=== PATIENT | female | born 1980 ===

== ENCOUNTER 2016-11-12 09:40 | Emergency (ER) | payer SELFPAY ==
[2016-11-12 09:48] VITALS: BP 118/76; PULSE 79; RESP 19; TEMP 98.1; O2SAT 99
--- NOTE | 2016-11-12 11:28 | ED PDOC ---
HPI: Female Pain Time Seen by Provider: 11/12/16 10:46 Chief Complaint (Nursing): Female Genitourinary Chief Complaint (Provider): vaginal pressure History Per: Patient History/Exam Limitations: no limitations Associated Symptoms: denies: Fever, Chills, Nausea, Vomiting, Diarrhea, Loss Of Appetite, Back Pain, Constipation, Urinary Symptoms Additional Complaint(s): 36yo F 13 weeks gestation with c/o lower abd pain/pressure x 3 days intermittent worse 9/10 on pain scale without vaginal bleeding, fever, chills, or back pain. Abnormal Vaginal Bleeding: No Past Medical History Reviewed: Historical Data, Nursing Documentation, Vital Signs Vital Signs: Last Vital Signs Temp 98.1 F 11/12/16 09:45 Pulse 79 11/12/16 09:45 Resp 19 11/12/16 09:45 BP 118/76 11/12/16 09:45 Pulse Ox 99 11/12/16 09:45 - Medical History PMH: No Chronic Diseases - Family History Family History: States: No Known Family Hx - Allergies Allergies/Adverse Reactions: Allergies Allergy/AdvReac Type Severity Reaction Status Date / Time No Known Allergies Allergy Verified 11/12/16 10:00 Review of Systems ROS Statement: Except As Marked, All Systems Reviewed And Found Negative Constitutional: Negative for: Fever Gastrointestinal: Positive for: Abdominal Pain Physical Exam - Reviewed Nursing Documentation Reviewed: Yes Vital Signs Reviewed: Yes - Physical Exam Appears: Positive for: Well, Non-toxic, No Acute Distress Head Exam: Positive for: ATRAUMATIC, NORMAL INSPECTION, NORMOCEPHALIC Skin: Positive for: Normal Color, Warm, DRY Cardiovascular/Chest: Positive for: Regular Rate, Rhythm Respiratory: Positive for: CNT, Normal Breath Sounds Gastrointestinal/Abdominal: Positive for: Normal Exam, Bowel Sounds, Soft Back: Positive for: Normal Inspection. Negative for: L CVA Tenderness, R CVA Tenderness Extremity: Positive for: Normal ROM Neurologic/Psych: Positive for: Alert, Oriented - ECG O2 Sat by Pulse Oximetry: 99 - Progress ED Course And Treament: threatened vs round ligament pain- pt very concerned about feuts well being insisting on US. pt is clinic pt. will get US and labs. Medical Decision Making Medical Decision Making: US: 19 weeks live IUP dx: round ligament pain advised to use warm compress f.u with pmd Disposition - Clinical Impression Clinical Impression: Round ligament pain - Patient ED Disposition Is Patient to be Admitted: No Counseled Patient/Family Regarding: Studies Performed, Diagnosis, Need For Followup - Disposition Disposition: Routine/Home Disposition Time: 12:56 Condition: STABLE Instructions: (ED) Print Language: SLOVAK
[2016-11-12 12:21] LABS: RBC URINE 2 /hpf (0-3); URINE BACTERIA OCC (<OCC); URINE BILIRUBIN NEGATIVE (NEGATIVE); URINE BLOOD NEGATIVE (NEGATIVE); URINE COLOR YELLOW (YELLOW); URINE GLUCOSE (UA) 50 mg/dL (Normal); URINE KETONE TRACE mg/dL (NEGATIVE); URINE LEUKOCYTE ESTERASE TRACE Leu/uL (Negative); URINE PROTEIN NEGATIVE (NEGATIVE); URINE UROBILINOGEN 0.2-1.0 mg/dL (0.2-1.0); WBC URINE 3 /hpf (0-5)
--- NOTE | 2016-11-12 12:54 | US ---
PROCEDURE: OB Pelvic Ultrasound HISTORY: heavy pressure/pain COMPARISON: None available. FINDINGS: UTERUS: Gestational sac: Single intrauterine fetus in variable presentation. BPD 4.2 cm corresponding to 19 weeks and 0 days HC 15.9 cm corresponding to 18 weeks and 6 days AC 13.6 cm corresponding to 19 weeks and 1 day FL 2.9 cm corresponding to 19 weeks and 0 days Placenta is anterior. Heart rate: 141 bpm. age (Ultrasound estimated): 19 weeks and 0 days Allison-gestational hemorrhage: None. Date of delivery (Ultrasound estimated) : 04/08/2017 CERVIX: Long and closed. No cervical abnormality seen. RIGHT OVARY: Not visualized. LEFT OVARY: Not visualized. FREE FLUID: None. OTHER FINDINGS: None. IMPRESSION: Single live intrauterine fetus in variable presentation. The mean ultrasound gestational age is 19 weeks and 0 days. There is a discrepancy with the clinical dates by approximately 4 weeks. Clinical follow-up is advised. Follow-up anatomic survey is recommended.
[2016-11-12 13:27] LABS: BASO % 0.2 % (0.0-2.0); EOS # 0.1 K/uL (0.0-0.7); EOS % 0.7 % (0.0-4.0); HEMATOCRIT 36.7 % (34.0-47.0); LYMPH # 2.5 K/uL (1.0-4.3); LYMPH % 21.7 % (20.0-40.0); MEAN CELL VOLUME 86.4 fl (81.0-99.0); MEAN CORPUSCULAR HEMOGLOBIN 27.8 pg (27.0-31.0); MEAN CORPUSCULAR HGB CONC 32.1 g/dL (33.0-37.0); MEAN PLATELET VOLUME 8.8 fl (7.2-11.7); MONO % 9.1 % (0.0-10.0); NEUT # 7.8 K/uL (1.8-7.0); NEUT % 68.3 % (50.0-75.0); NRBC % 0.1 % (0.0-0.0); RED CELL DISTRIBUTION WIDTH 14.1 % (11.5-14.5); WHITE BLOOD COUNT 11.4 K/uL (4.8-10.8)
[2016-11-12 13:40] LABS: CHLORIDE 102 mmol/L (98-107)
[2016-11-12 13:41] LABS: POTASSIUM 3.8 MMOL/L (3.6-5.0); SODIUM 138 mmol/l (132-148)
[2016-11-12 13:43] LABS: ALKALINE PHOSPHATASE 59 U/L (38-126); AST/SGOT 30 U/L (14-36); BILIRUBIN,TOTAL 0.3 mg/dl (0.2-1.3); BLOOD UREA NITROGEN 8 mg/dl (7-17); CARBON DIOXIDE 24 mmol/L (22-30); GFR AFRICAN-AMERICAN > 60; TOTAL PROTEIN 7.3 G/DL (6.3-8.2)
[2016-11-12 13:44] LABS: ALT/SGPT 25 U/L (9-52); CALCIUM 9.3 mg/dL (8.4-10.2); GLUCOSE,RANDOM 74 mg/dL (65-105)
== END 2016-11-12 13:29 | disposition home or self-care (01) ==
LOC: H.ER 09:40
DX: O26.892 Other specified pregnancy related conditions, second trimester (principal); Z3A.19 19 weeks gestation of pregnancy

== ENCOUNTER 2017-04-10 18:17 | Inpatient (IN) | payer MEDICAID, SELFPAY ==
[2017-04-10 20:01] VITALS: BMI 33.2
[2017-04-10] MEDS ORDERED: Lactated Ringer's 1,000 ML IV SCH (20:01)
[2017-04-10 22:56] LABS: BASO % 0.2 % (0.0-2.0); EOS # 0.1 K/uL (0.0-0.7); EOS % 0.7 % (0.0-4.0); HEMATOCRIT 37.5 % (34.0-47.0); LYMPH # 3.1 K/uL (1.0-4.3); LYMPH % 24.8 % (20.0-40.0); MEAN CELL VOLUME 84.6 fl (81.0-99.0); MEAN CORPUSCULAR HEMOGLOBIN 27.1 pg (27.0-31.0); MEAN PLATELET VOLUME 9.7 fl (7.2-11.7); MONO # 1.1 K/uL (0.0-0.8); MONO % 9.1 % (0.0-10.0); NEUT # 8.1 K/uL (1.8-7.0); NEUT % 65.2 % (50.0-75.0); RED CELL DISTRIBUTION WIDTH 15.5 % (11.5-14.5); WHITE BLOOD COUNT 12.5 K/uL (4.8-10.8)
[2017-04-10 23:05] VITALS: O2SAT 100
[2017-04-11] MEDS: Lactated Ringer's 1,000 ML IV SCH ×2 (05:47)
--- NOTE | 2017-04-11 06:18 | OBADHP ---
Datetime: 04/11/2017 00:59 Vital Signs Provider: Reviewed; Within Normal Limits Datetime: 04/10/2017 20:30 Admit Comment, IP Provider: CHIEF COMPLAINT: CTX HPI: Pt is a 37 yo at 39.5 wks GA with EDC by lmp (+) CTX, FM; (-) ROM, VB, last U/S:04/2017 (placenta anterior no placenta previa, normal AGATHA EFW 62%; air/fluid filled bowel at growth U S, R/O bowel obstruction vs rectal atresia; notify peds) last visit: 03/25/2017 GBS: negative; She pr esented to the [facility] due to increasing contractions, which began at 1 PM today, occurring approximatel y every 15 minutes lasting 1-2 minutes in duration. Contraction pain is lower abdominal rated as pres sured feeling and rated to be 5/10. Currently, she rates the pain to be 10/10 and occurring every 2 m inutes. PAST OB HX: 2006 year @ 40week, M PAST [employer] HX: STD: RPR -; HIV -; HBSAG: -; RUBELLA: IM; GC: -; C: -; PPD (+) 09/29/2016 --> CXR (-) , PAP: 10/30/2016 PMHX: none PAST SX HX: none SOCIAL HX: Denies: SMOKING ,ALCOHOL ,DRUGS MEDICATION: PNV ALLERGIES: NKDA PE: VITALS: 125/77 98 General: pleasant HEENT: normocephalic, PERRLA, moist mucosa Heart: no murmurs, regular rate and rhythm, S1, S2 normal. Lungs: clear to auscultation bilaterally, no wheezing Abodmen: gravid SSE/PELVIC EXN: 1-2 cm dilated with 25% effacement Bed side u/s: n/a MONITOR (normal) Variablity: moderate: ACC: 15x15 DECC: none FHR: 130 ASSESSMENT: 37 yo GP at 39.5 wks with no signifacant pmhx. observed for further progression of no rmal vaginal labor; at 20:30 cervical dilation was up to 4 cm at 2 station. PLAN: Admit to Labor and Delivery, CBC/Type and Screen/RPR, Intravenous access, Monitoring, Monitor Labor progress, Discussion about her condition including labor, delivery, pain management, an d care. Hydration and augmentation of labor/ care. Admit labs adequate pelvis v ertex presentation. David Lizarraga M.D. - PGY-1. Addendum: Patient served at OB ED. Plan to admit patient for early labor. Both maternal well-being and well-being reassuring at this time. Discussed plan with patient all patient questions answered. Geeta Pelvic Type - PN: Adequate Extremities - PN: Normal Abdomen - PN: Normal Back - PN: Normal Breast - PN: Not Done Lungs - PN: Normal Heart - PN: Normal Thyroid - PN: Not Done Neurologic - PN: Normal HEENT - PN: Normal General - PN: Normal FHR - Baseline A Provider: 130 Contraction Comments Provider: every 2 minutes Comments, ACOG Physical Exam: Physical exam performed by Dr. Connor IP Chief Complaint: Uterine contractions; Maternal discomfort NICHD Variability Prov Fetus A: Moderate 6-25bpm NICHD Accel Fetus A IP Provider: 15X15 FHR Category Provider Fetus A: Category I NICHD Decel Fetus A IP Provider: None Dilatation, Provider: 4 cm Station, Provider: -2 Genitourinary Exam: Normal DTRs - PN: Not Done EGA AdmitDate IP: 39.5 IP Adm Impression: Term, intrauterine IP Admit Plan: Admit to unit Datetime: 04/10/2017 19:30 Effacement, Provider: 25 Datetime: 04/10/2017 10:30 IP Hx Assessment: The History has been Reviewed and is Current
--- NOTE | 2017-04-11 06:23 | OBPN ---
Datetime: 04/11/2017 06:18 IP Progress Impression: Normal progression of labor; Reassuring heart rate IP Procedures: Sterile Vag Exam IP Progress Plan: Continue present management Membranes, Provider: Intact Contraction Comments Provider: q4-5min FHR - Baseline A Provider: 130s-140s IP Progress Note Comment: Labor progressing well. Patient without complaints. Both maternal well-nelson ng and well-being reassuring at this time. Continue current management. Vital Signs Provider: Reviewed; Within Normal Limits NICHD Accel Fetus A IP Provider: 15X15 FHR Category Provider Fetus A: Category I NICHD Variability Prov Fetus A: Moderate 6-25bpm Dilatation, Provider: 5-6 Effacement, Provider: 90 Station, Provider: -2 NICHD Decel Fetus A IP Provider: None
[2017-04-11] MEDS ORDERED: Oxycodone/Acetaminophen 5/325 mg Tab PO PRN ×2 (09:36)
[2017-04-11] MEDS ORDERED: Benzocaine/Menthol SPRAY TOP PRN (09:36)
--- NOTE | 2017-04-11 09:45 | OBDS ---
DELIVERY PERSONNEL Delivery Doctor: Tonja Brasher MD Mallet Cutter: RoisoFNarcisoRN/WGrimmRN Resident: Dr Montanez MATERNAL INFORMATION Medications in Delivery: Pitocin Placenta Cultured: No Provider Comments: of live female infant over intact perineum in JAY presentation with nuchal c ord, 7lbs 4oz, 9/9, followed by shoulders and rest of , mouth and nose suctioned on chest, cord blood obtained, placenta delivered spontaneously, fundus firm, 2nd degree laceration injected with l idocaine with epinephrine, 2-0 Vicryl rapide used for repair, [id number], pt otherwise tolerated proce dure LABOR SUMMARY EDC: 04/12/2017 00:00 No. Babies in Womb: 1 Attempted: No Labor Anesthesia: None LABOR INFORMATION Reason for Induction: Not Applicable Onset of Labor: 04/10/2017 22:00 Complete Dilatation: 04/11/2017 08:30 Other Ripening Agents: n/a Oxytocin: N/A Group B Beta Strep: Negative Antibiotics # of Doses: n/a Antibiotics Time of Last Dose: n/a Steroids Given: None Reason Steroids Not Administered: Not Applicable Other Reason Not Administered: n/a MEMBRANES Membranes Rupture Method: Artificial Rupture of Membranes: 04/11/2017 08:30 Length of Rupture (hrs): 0.78 Amniotic Fluid Color: Clear (Annotations: with light amount of blood) Amniotic Fluid Amount: Small Amniotic Fluid Odor: Normal STAGES OF LABOR Stage 1 hrs: 10 Stage 1 min: 30 Stage 2 hrs: 0 Stage 2 min: 47 Stage 3 hrs: 0 Stage 3 min: 4 Total Time in Labor hrs: 11 Total Time in Labor min: 21 BABY A INFORMATION Infant Delivery Date/Time: 04/11/2017 09:17 Method of Delivery: Vaginal Born in Route : No : N/A Forceps: N/A Vacuum Extraction: N/A Shoulder Dystocia : No SHOULDER DYSTOCIA BABY A Delivery Date/Time: 04/11/2017 09:17 PRESENTATION/POSITION BABY A Presentation: Cephalic Cephalic Presentation: Vertex Breech Presentation: N/A PLACENTA INFORMATION BABY A Placenta Delivery Time : 04/11/2017 09:21 Placenta Method of Delivery: Spontaneous Placenta Status: Delivered SCORES BABY A Heart Rate 1 min: >100 bpm Resp Effort 1 min: Good Cry Reflex Irritability 1 min: Cough or Sneeze or Pulls Away Muscle Tone 1 min: Active Motion Color 1 min: Body [place], Extremities Blue Resuscitation Effort 1 min: Tactile Stimulation SCORE 1 MIN: 9 Heart Rate 5 min: >100 bpm Resp Effort 5 min: Good Cry Reflex Irritability 5 min: Cough or Sneeze or Pulls Away Muscle Tone 5 min: Active Motion Color 5 min: Body [place], Extremities Blue Resuscitation Effort 5 min: N/A SCORE 5 MIN: 9 INFANT INFORMATION BABY A Gestational Age at Delivery: 39.6 Gestational Status: Term Outcome : Liveborn Infant Condition : Stable Infant Sex: Female IDENTIFICATION/MEDS BABY A ID Band Number: [id number] ID Band Location: Left Leg; Left Arm Vitamin K Given : Not Given Erythromycin Given: Not Given WEIGHT/LENGTH BABY A Infant Birthweight (gms): 3285 Infant Weight (lb): 7 Weight (oz): 4 CORD INFORMATION BABY A No. Cord Vessels: 3 Nuchal Cord : Around Neck x1, Loose Nuchal Cord Other: n/a True Knot: n/a Cord pH Baby Arterial: n/a Cord pH Baby Venous: n/a Cord Blood Taken: Yes Banking/Donate Info: n/a Infant Suction: Mouth; Nose ASSESSMENT BABY A Infant Complications: None Physical Findings at Delivery: Within Normal Limits Infant Respirations: Appears Normal [facility] Called : No Infant Care By: Rosio Jamison Transferred To: Remains with Mother
--- NOTE | 2017-04-12 09:29 | OBPPN ---
Datetime: 04/12/2017 09:25 PP Pain Prov: Within normal limits PP Abdomen/Uterus Prov: Normal PP Lochia Prov: Normal PP Extremities Prov: Normal PP Progress Prov: Normal PP Impression Prov: Normal progression PP Plan Prov: Continue present management PP Progress Note Prov: PPD 1 s/p , doing well, breast and bottle feeding Continue current management Vital Signs Provider PP: Reviewed
[2017-04-12 10:00] LABS: BASO # 0.1 K/uL (0.0-0.2); BASO % 0.6 % (0.0-2.0); EOS # 0.1 K/uL (0.0-0.7); EOS % 0.6 % (0.0-4.0); HEMATOCRIT 33.9 % (34.0-47.0); LYMPH # 2.5 K/uL (1.0-4.3); LYMPH % 20.8 % (20.0-40.0); MEAN CELL VOLUME 84.5 fl (81.0-99.0); MEAN CORPUSCULAR HEMOGLOBIN 26.8 pg (27.0-31.0); MEAN CORPUSCULAR HGB CONC 31.7 g/dL (33.0-37.0); MEAN PLATELET VOLUME 8.6 fl (7.2-11.7); MONO # 0.9 K/uL (0.0-0.8); MONO % 7.2 % (0.0-10.0); NEUT # 8.6 K/uL (1.8-7.0); NEUT % 70.8 % (50.0-75.0); RED CELL DISTRIBUTION WIDTH 15.7 % (11.5-14.5); WHITE BLOOD COUNT 12.1 K/uL (4.8-10.8)
--- NOTE | 2017-04-13 10:16 | OBDCSUM ---
Datetime: 04/13/2017 07:34 Discharged to, Provider: Home Follow up at, Provider: Dr Cunningham [facility] Disch Instr Activity: Normal activity; May be up to bathroom; May be up for meals; May Shower Disch Instr Diet: Regular Discharge Instructions, Provider: Routine instructions given Discharge Diagnosis, Provider: Term Delivered Discharge Time: 04/13/2017 07:35 Follow up in weeks, Provider: 6 weeks Disch Referrals: None Contraception discussed, Prov: Yes Disch Activity Restrictions: No lifting; Minimize stair-climbing; No sexual activity; Nothing in vag elaina - [place], tampons, douche Discharge Comment, Provider: DOA:04/10/17 EGA:39.6 Diagnosis: SROM/NVD PRisk factors: none summary of : L_D summary: DOL:04/11/17 at 9:17 NVD,no epidural NB: female : 04/18 Weight:3285 PP summary: No serious complications during PP. Lochia= menses, mild pain, controlled with medications Rubella immune, Tdap 01/26/2017 blood type: O+ CBC pp: 10.7/33.9 Discharge Date: 04/13/2017 at 7:35 Discharge Instructions: -encourage -Ibuprofen for pain PRN -Colace for constipation -Ambulate as tolerated -PNV 1 tab daily -f/u NB visit and PP visit Pj Meraz PGY 1
--- NOTE | 2017-04-13 10:16 | OBPPN ---
Datetime: 04/13/2017 10:14 PP Pain Prov: Within normal limits PP Nausea Prov: Denies PP Flatus Prov: Yes PP Breasts Prov: Normal PP Heart Prov: Normal PP Lungs Prov: Normal PP Abdomen/Uterus Prov: Normal PP Lochia Prov: Normal PP Vulva/Perineum Prov: Normal PP CVA Tenderness Prov: Normal PP Extremities Prov: Normal PP Comments Phys Exam Prov: Fundus firm PP Impression Prov: Normal progression PP Plan Prov: Continue present management PP Progress Note Prov: Patient denies CP, no SOB, no N/V, tolerating PO diet, ambulating/voiding wel l, mild lochia, abdominal pain tolerable with meds A/P PPD #2 1. Discharge patient home 2. Discharge instructions reviewed IP PP Procedures: None Vital Signs Provider PP: Reviewed; Within Normal Limits
[2017-04-13 17:28] VITALS: BP 132/76; PULSE 73; RESP 20; TEMP 98.3
== END 2017-04-13 11:35 | disposition home or self-care (01) | DRG 373 ==
LOC: H.EROB2 18:17 → H.EROB 19:17 → H.L&D 22:11 → H.EROB2 22:39 → H.OB/GYN 04-11 11:23
PROVIDERS: ADMIT Obstetrics & Gynecology; ATTEND Obstetrics & Gynecology
PROC: 10E0XZZ Delivery of Products of Conception, External Approach (ICD-10-PCS; principal; 2017-04-10)
PROC: 0KQM0ZZ Repair Perineum Muscle, Open Approach (ICD-10-PCS; 2017-04-10)
PROC: 4A1HXCZ Monitoring of Products of Conception, Cardiac Rate, External Approach (ICD-10-PCS; 2017-04-10)
DX: O69.81X0 Labor and delivery complicated by cord around neck, without compression, not applicable or unspecified (principal); O70.1 Second degree perineal laceration during delivery; Z37.0 Single live birth; Z3A.39 39 weeks gestation of pregnancy